=== PATIENT | male | born 1960 | race Caucasian/White ===

== ENCOUNTER 2017-03-16 13:12 | Inpatient (IN) | payer OTHER ==
[2017-03-16] MEDS ORDERED: LISINOPRIL 10 MG TAB PO STA (13:36)
--- NOTE | 2017-03-16 13:36 | ED ---
Psych HPI - General Source: patient, police, RN notes reviewed Mode of arrival: ambulatory Limitations: no limitations <Patrick Lowe - Last Filed: 03/16/17 18:40> <Trevor Chu - Last Filed: 03/16/17 19:03> - General Chief Complaint: Psychiatric Symptoms Stated Complaint: evaluation Time Seen by Provider: 03/16/17 13:26 - History of Present Illness Initial Comments: 56-year-old male presents emergency Department with [facility] for psychiatric evaluation. Patient reportedly made some threats. Patient is not forthcoming on any information. Patient states that he is not suicidal or homicidal area patient does admit to occasional alcohol use no drug use. Patient states he is upset at the current situation with his son being charged with breaking and entering and multiple other charges. Please reportedly received information from a friend that the patient stated that he was going to burn down his trailer, that he wanted to burn down her into the please station that he wanted to kill his son's girlfriend and loss and has made some other threats. He does state these were allegations made by another person in which the patient told that person. Patient denies any threats at this time. Patient denies any physical complaints. Patient states that he is supposed to blood pressure medication but has not been on for over one year. (Patrick Lowe) - Related Data Home Medications Medication Instructions Recorded Confirmed Unknown Muscle Relaxer 1 tab PO DAILY PRN 03/16/17 03/16/17 Allergies Allergy/AdvReac Type Severity Reaction Status Date / Time bee pollen Allergy Anaphylaxis Verified 03/16/17 13:51 Review of Systems ROS Other: All systems not noted in ROS Statement are negative. <Patrick Lowe - Last Filed: 03/16/17 18:40> ROS Other: All systems not noted in ROS Statement are negative. <Trevor Chu - Last Filed: 03/16/17 19:03> ROS Statement: Those systems with pertinent positive or pertinent negative responses have been documented in the HPI. Past Medical History Past Medical History: Hypertension Additional Past Medical History / Comment(s): back neck pain , right shoulder History of Any Multi-Drug Resistant Organisms: None Reported Additional Past Surgical History / Comment(s): right shoulder Past Psychological History: Depression Smoking Status: Current every day smoker Past Alcohol Use History: Occasional Past Drug Use History: None Reported <Patrick Lowe - Last Filed: 03/16/17 18:40> General Exam Limitations: no limitations General appearance: alert, in no apparent distress Head exam: Present: atraumatic, normocephalic, normal inspection Eye exam: Present: normal appearance, PERRL, EOMI. Absent: scleral icterus, conjunctival injection, periorbital swelling ENT exam: Present: normal exam, normal oropharynx, mucous membranes moist Neck exam: Present: normal inspection. Absent: tenderness, meningismus, lymphadenopathy Respiratory exam: Present: normal lung sounds bilaterally. Absent: respiratory distress, wheezes, rales, rhonchi, stridor Cardiovascular Exam: Present: normal rhythm, tachycardia, normal heart sounds. Absent: systolic murmur, diastolic murmur, rubs, gallop, clicks Neurological exam: Present: alert, oriented X3, CN II-XII intact Psychiatric exam: Present: agitated Skin exam: Present: warm, dry, intact, normal color. Absent: rash <Patrick Lowe - Last Filed: 03/16/17 18:40> Course <Patrick Lowe - Last Filed: 03/16/17 18:40> <Trevor Chu - Last Filed: 03/16/17 19:03> Vital Signs 03/16/17 03/16/17 03/16/17 13:18 14:01 18:46 Temperature 97.8 F Pulse Rate 111 H 91 77 Respiratory 18 18 18 Rate Blood Pressure 206/117 182/93 179/94 O2 Sat by Pulse 98 97 98 Oximetry - Reevaluation(s) Reevaluation #1: 03/16/17 19:03 The patient/case was evaluated by me. Patient was evaluated by the psychiatric service and he will be admitted for inpatient treatment. I did fill out a clinical certification. (Trevor Chu) Disposition <Patrick Lowe - Last Filed: 03/16/17 18:40> <Trevor Chu - Last Filed: 03/16/17 19:03> Clinical Impression: Homicidal thoughts, Adjustment reaction Disposition: ADMITTED IP TO THIS HOSP Condition: Stable
[2017-03-16] MEDS ORDERED: NICOTINE 21MG/24HR PATCH TRANSDERM STA (16:32)
[2017-03-16] MEDS ORDERED: ACETAMINOPHEN TAB 325 MG TAB PO PRN (21:30)
[2017-03-16] MEDS ORDERED: MAG HYDROX/AL HYDROX/SIMETH 30 ML CUP PO PRN (21:30)
[2017-03-16] MEDS ORDERED: MAGNESIUM HYDROXIDE 2,400 MG/10 ML CUP PO PRN (21:30)
[2017-03-16] MEDS ORDERED: ZIPRASIDONE 20 MG VIAL IM PRN (21:30)
[2017-03-16] MEDS ORDERED: LORazepam 1 MG TAB PO PRN (21:30)
[2017-03-17] MEDS: NICOTINE 21MG/24HR PATCH TRANSDERM SCH (08:41)
[2017-03-17] MEDS: LOSARTAN-HCTZ 50-12.5 MG 1 EACH TAB PO SCH (13:51)
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
[2017-03-18] MEDS: LOSARTAN-HCTZ 50-12.5 MG 1 EACH TAB PO SCH (09:10)
[2017-03-18] MEDS: NICOTINE 21MG/24HR PATCH TRANSDERM SCH (09:10)
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
[2017-03-19] MEDS: NICOTINE 21MG/24HR PATCH TRANSDERM SCH (08:44)
[2017-03-19] MEDS: LOSARTAN-HCTZ 50-12.5 MG 1 EACH TAB PO SCH (08:44)
[2017-03-20 06:26] VITALS: TEMP 97.6
[2017-03-20] MEDS: NICOTINE 21MG/24HR PATCH TRANSDERM SCH (09:03)
[2017-03-20] MEDS: LOSARTAN-HCTZ 50-12.5 MG 1 EACH TAB PO SCH (09:04)
[2017-03-20 09:06] VITALS: BP 147/77; PULSE 95; RESP 16
--- NOTE | 2017-03-20 12:46 | P.PN ---
Progress Note - Text DATE OF SERVICE: 03/19/2017 CHIEF COMPLAINT: The patient was admitted on petition completed by a neighbor stating that the patient was extremely angry and making many threatening statements of harm to the person he was living with, to the police in his community and to police in [place] where his son is apparently incarcerated. INTERVAL HISTORY: The patient has been doing fairly well. He attends groups. He has been appropriate in his behavior. He maintains an even mood. He had a quiet evening last night. He slept well. He has been up and about. He interacts with others in the milieu. He continues on no psychotropic medications. I had an extensive discussion with the person who will file the petition. She continues to state that the patient has made many serious and threatening statements and that she fears for her safety and for family safety. The patient for his part states that he completely disagrees with what the petitioner has said and documented. I made efforts to have the petitioner coming in for a group meeting. She left a message with staff that she was too afraid to come in. I gave her a follow-up phone call and she indicated that she would be willing to come in. She said she needed to call the person the patient had been living with to make arrangements for a ride. She said that she would return a phone call to the unit when she found out if she could find a ride or not. We did not receive a follow-up phone call. It is noted that when I reviewed with the patient indicated about his living arrangements, that he was offered free room and board in exchange for his doing a number of home repair of projects which included getting water turned on in the home where there was no running water. The petitioner did say that this in fact was the arrangement and that the patient had done the repair work as noted. It is also noted that when I talked to the person he was living with, Doris, who is the grandmother of the petitioner, that Doris indicated she did not hear any threatening comments that the patient presumably made and that was documented on the petition. The patient restated that he has no intention of returning to the house where he has been living other than to secure his car and belongings. The patient has had no change in his general health. MENTAL STATUS EXAM: The patient gave good eye contact. Psychomotor activity was a little restless. He answered questions with direct responses. His thoughts were clear and coherent. His affect was in a reasonable range. He smiled and was polite and appropriate. His mood was even. He wasn't distressed. ASSESSMENT: We will continue the current diagnosis and treatment plan. There is no indication for initiating no psychotropic medications. The patient does not show signs or symptoms of a primary mood, anxiety or thought disorder. There are no indications that the patient poses a risk of harm to self or others. I reviewed the petition and the process for the patient signing in voluntarily with Dr. Ludwig. He noted that on the petition that what was documented appeared outlandish and at a minimum highly overstated. He did not identify a basis for completing a second certification period, in part based on the patient's willingness to continue a short psychiatric hospitalization for further evaluation. It is noted that the petitioner indicated there was a plan for Doris to put all of the patient's possessions in his truck and drive the truck to the hospital. My advice to the petitioner was to leave the truck in place as that it would likely be improper for anyone to be driving his vehicle. I advised both the patient and the petitioner individually that my recommendation is as follows: That the patient would telephone Doris to arrange a time where he or his public service representative could come to the home to obtain his possessions and vehicle. I advised that this be done with police escort. I advised that if he should appear in the neighborhood of Doris and the petitioner without notification as above that they should call the police. The petitioner indicated she was clear in her understanding of this recommendation. The patient was clear on this recommendation as well. We will make an effort to contact the patient's sister or other family member in an effort to get any further relevant information as part of discharge planning. I anticipate the patient will be discharged today or tomorrow.
--- NOTE | 2017-03-22 19:45 | DS ---
DATE OF ADMISSION: 03/16/2017 DATE OF DISCHARGE: 03/19/2017 ADMISSION AND DISCHARGE DIAGNOSES:\\ 1. Alcohol use disorder. 2. Rule out antisocial traits. 3. Hypertension. 4. History of cervical spine injury. 5. No independent housing, unemployment and limited support. HISTORY OF PRESENTING ILLNESS: The patient is a 56-year-old male. He was admitted on petition for involuntary hospitalization. The petition was completed by a neighbor stating that the patient was extremely angry and making many threatening statements of harm to the person he was living with, to police in his community and to police in [place] where his son is apparently incarcerated. The patient himself stated that that information was completely false and that he denied making any serious threatening statements. The patient has not had past psychiatric admissions. He is not currently on any psychotropic medications. He is not involved in any mental health follow up. He said the most immediate issue for him is that he became angry over finding out that his son had serious legal problems and was either in group home or going to group home. The patient felt stressed by not being able to get information from authorities regarding his son. According to the petitioner, the patient made many statements about threatening others which included threatening the person he was living with, Tabitha; threatening other of Tabitha's family members, threatening to burn the police station down in [place] and also going to [place] to initiate a assisted break for his son. He presumably said in the midst of this, he anticipated that he would "suicide by helicopter engineer". He made other statements according to the petitioner that were very threatening. When seen by Dr. Ludwig for admission, Dr. Ludwig was not able to support what was documented in the petition and allowed the patient to sign involuntarily with the contract for an observation period on the psychiatric unit. The patient was not indicating any ongoing psychiatric issues. There was no indication of a thought disorder. The patient was not showing signs of bipolar disorder, depression or other primary psychiatric conditions. The patient was not started on any medications. He was admitted for further evaluation. Medical history and physical exam as per Dr. Coppola. MENTAL STATUS EXAM: The patient was cooperative. He sat calmly. He denied any thoughts of harm to self or others. There was no indication of auditory or visual hallucinations. There was no indication of delusions. Thought process can be circumstantial at times but he had demonstrated no tangential thinking, loose association or flight of ideas. Cognitive exam was clear. DIAGNOSTIC STUDIES: Urine drug screen was positive for THC. COURSE OF HOSPITALIZATION: The patient was admitted for comprehensive medical psychiatric and psychosocial evaluation. The patient was engaged in individual and group therapeutic activities. No psychotropic medications were prescribed during his hospitalization. Overall the patient did well during his hospital stay. He slept well at night. He was cooperative. He maintained an even mood. He attended groups. He interacted with others. He continued to show a stable mood with no indication of thought or mood disorder. He continued to state that was documented in the petition was very much out of line with reality. I had several discussions with the petitioner, Tony. She was quite adamant about what she had documented as being real. She made a number of statements that the patient had said he knew many ways to hide his true intentions, he knew how to surveil places such as a police station where he could avoid any detection of cameras and be able to commit the acts that Tony ascribed to him. She stated that she was quite fearful about how he might seek revenge. I made an effort to have Tony come to the psychiatric unit so that we could have a meeting and discuss issues further. On the day prior to discharge Tony did state that she would be able to come to the psychiatric unit at 10 in the morning. On the day of discharge she called earlier in the day and stated that she was too fearful to come to the psychiatric unit. I talked to her again on the telephone. I discussed the objective for her coming to the unit. I explained that what she had documented was quite extreme and that this was beyond what any petition generally has documented. I explained that Dr. Ludwig was not able to make any determination that would support completing a certification for involuntary hospitalization. I explained the patient's current status including the plan for discharge. I encouraged Tony to come in so that we could best address concerns and her perspective on the situation as well as to compare and contrast the patient's perspective on the situation. Tony did say that she would make an effort to arrange a ride and that she would call back shortly if that was possible. We did not receive a follow up call from her. I did share with Tony that I advised the patient if he were to come to [facility] to fruit or nut picker his possessions that my recommendation was that he call Tabitha ahead of time to set up a specific time to come and that he obtain police escort for safety issues. I advised Tony to share this with Tabitha and that if the patient was to show up in the neighborhood outside of this plan, that they should immediately call the police. I reviewed this plan with the patient as well so that he would be able to protect his own safety in this regard. It is noted that Tony had made a comment that Tabitha had a plan of putting all of the patient's possessions in his truck and then driving the truck to the hospital. I recommended to Tony that it does not seem it would be advisable for Tabitha to be driving the patient's truck. I recommended that either the patient, with police escort, come to Tabitha's house to fruit or nut picker his possessions or, preferably, for the patient to arrange for a family member, namely a sister, to take possessions and arrange for the truck to be brought back to the patient. The patient was in agreement with the treatment plan. It is noted that while the patient was very specific about disagreeing with what was in the petition and also was very specific about the fact that he had no intentions of going back to the house or being in that neighborhood, that he was willing to sign a release of information to Tony so that we could notify her upon his discharge. I reviewed the case with Dr. Ludwig. indicated that his impression was that what was documented in the petition included what he described as outlandish statements, that seemed to go quite beyond anything that would be reality. He said he could understand that the patient might be "hot headed" and has made statements that might have been intense but there was no indication on Dr. Ludwig's part of any intent or capability in that direction. It is noted that, when I reviewed issues with the patient, he indicated that he believed Tony has some significant ongoing problems herself , possibly with mental health issues. He indicated that she has had a number of conflictual situations with others, that she is receiving some government support for her mother to provide in-home care though the money has been diverted and that his impression was that she would, at a minimum, significantly exaggerate any statements that he might have made and beyond that he could envision that she could fabricate information. On the patient's part he noted that he came into Tabitha's house with the understanding that he would have room and board in exchange for his doing work on the trailer and helping others in Tabitha's family including doing such things as getting water running. It is noted that Jamesalfonsomiesha did confirm that this was the arrangement and that that work actually was done. It is noted that I had a contact with Tabitha who indicated that she had not heard any of the information that was documented in the petition and that the information she understood was second hand and was told to her by Tabitha. We did make efforts to contact the sister prior to discharge. CONDITION AT DISCHARGE: The patient was stable. There was no indication for mood or thought disorder. The patient did not have any indication of difficulties with his behavior or function during the course of his hospitalization. There was no indication of thoughts or impulses towards harm to self or others. RECOMMENDATIONS AND FOLLOW UP: The patient is discharged to home. He will be living with his sister. No medications are prescribed at discharge. He has a follow up appointment with [facility] on 03/21/2017 at 2 p.m. REBECA
== END 2017-03-20 14:52 | disposition home or self-care (01) | DRG 882 ==
LOC: EC 13:12 → 3MHU 18:57
PROVIDERS: ADMIT Psychiatry & Neurology Psychiatry; ATTEND Psychiatry & Neurology Psychiatry
DX: F43.20 Adjustment disorder, unspecified (principal); I10 Essential (primary) hypertension; F10.10 Alcohol abuse, uncomplicated; Z56.0 Unemployment, unspecified; F17.210 Nicotine dependence, cigarettes, uncomplicated; M50.30 Other cervical disc degeneration, unspecified cervical region; G89.29 Other chronic pain
CPT/HCPCS: 80306; 82075; 99285

== ENCOUNTER 2018-01-17 10:08 | Emergency (ER) | payer MEDICAID, OTHER ==
[2018-01-17 10:30] VITALS: RESP 18
[2018-01-17] MEDS ORDERED: ONDANSETRON 4 MG/2 ML VIAL IVP STA (10:40)
[2018-01-17] MEDS ORDERED: SODIUM CHLORIDE 0.9% 2,000 ML IV STA (10:40)
[2018-01-17] MEDS ORDERED: DICYCLOMINE 10 MG/ML 2 ML AMP IM STA (10:40)
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
[2018-01-17 11:16] LABS: Basophils % (A) 0 %; Eosinophils # (A) 0.1 k/uL (0-0.7); Eosinophils % (A) 1 %; HGB 16.9 gm/dL (13.0-17.5); Lymphocytes # (A) 0.3 k/uL (1.0-4.8); Lymphocytes % (A) 3 %; MCH 30.2 pg (25.0-35.0); MCHC 33.1 g/dL (31.0-37.0); MCV 91.1 fL (80.0-100.0); Mean Platelet Volume 7.3; Monocytes # (A) 0.3 k/uL (0-1.0); Monocytes % (A) 3 %; Neutrophils # (A) 11.9 k/uL (1.3-7.7); Neutrophils % (A) 94 %; Platelet Count 259 k/uL (150-450); RBC 5.59 m/uL (4.30-5.90); RDW 13.6 % (11.5-15.5); WBC 12.7 k/uL (3.8-10.6)
[2018-01-17 11:32] LABS: Albumin 4.5 g/dL (3.5-5.0); Calcium 9.4 mg/dL (8.4-10.2); Magnesium 1.3 mg/dL (1.6-2.3); Potassium 4.3 mmol/L (3.5-5.1); Total Bilirubin 0.9 mg/dL (0.2-1.3); Total Protein 7.1 g/dL (6.3-8.2)
[2018-01-17] MEDS ORDERED: MAGNESIUM OXIDE 400 MG TAB PO STA (11:46)
[2018-01-17 12:57] VITALS: BP 117/72; PULSE 71; TEMP 99.1
== END 2018-01-17 13:00 | disposition home or self-care (01) ==
LOC: EC 10:08
DX: R10.84 Generalized abdominal pain (principal); R11.2 Nausea with vomiting, unspecified; R19.7 Diarrhea, unspecified; D72.829 Elevated white blood cell count, unspecified; I10 Essential (primary) hypertension; F17.200 Nicotine dependence, unspecified, uncomplicated; Z79.1 Long term (current) use of non-steroidal anti-inflammatories (NSAID); Z79.899 Other long term (current) drug therapy; Z91.030 Bee allergy status
CPT/HCPCS: 36415; 80053; 83690; 83735; 85025; 99284; 96374; 96361; 96372; J0500; J2405